=== PATIENT | male | born 1955 | race Caucasian/White ===

== ENCOUNTER 2020-02-11 21:45 | Emergency (ER) | payer BC ==
[~2020-02-11] VITALS: Ht 177.8 cm; Wt 56.2 kg
[2020-02-11] MEDS ORDERED: LITHIUM CARBON300 MG PO (22:02)
[2020-02-11] MEDS ORDERED: BUPROPION HCL100 M1 PO (22:03)
[2020-02-11] MEDS ORDERED: NEURONTIN100 MG PO (22:04)
[2020-02-11] MEDS ORDERED: TRAZODONE HCL150 MG PO (22:04)
[2020-02-11] MEDS ORDERED: HYDROXYZINE HCL25 MG PO (22:04)
[2020-02-11] MEDS ORDERED: ORPHENADRINE C100 MG PO (22:05)
[2020-02-11] MEDS ORDERED: MIRTAZAPINE30 MG PO (22:05)
== END 2020-02-11 23:10 | disposition home or self-care (01) ==
LOC: ED 21:45
DX: F10.129 Alcohol abuse with intoxication, unspecified (principal); F31.9 Bipolar disorder, unspecified; Z79.899 Other long term (current) drug therapy
CPT/HCPCS: 70450; 80053; 80176; 80178; 84443; 85025; 99285-25; G0480